=== PATIENT | male | born 2000 | race Caucasian/White ===

== ENCOUNTER 2022-02-27 04:00 | Emergency (ER) | payer OTHER ==
[2022-02-27] MEDS ORDERED: Lidocaine 1% 30 ML SDV INJECT ONE (04:33)
== END 2022-02-27 08:40 | disposition home or self-care (01) ==
LOC: VM.ED 04:00
DX: S02.31XA Fracture of orbital floor, right side, initial encounter for closed fracture (principal); S01.81XA Laceration without foreign body of other part of head, initial encounter; S60.511A Abrasion of right hand, initial encounter; S40.211A Abrasion of right shoulder, initial encounter; S80.211A Abrasion, right knee, initial encounter; V89.2XXA Person injured in unspecified motor-vehicle accident, traffic, initial encounter
CPT/HCPCS: 12013; 12014; 70450; 70486; 72125; 99283-25; 99284